=== PATIENT | female | born 1945 | race Caucasian/White ===

== ENCOUNTER 2016-12-16 18:06 | Inpatient (IN) | payer MEDICARE ==
[2016-12-16 20:58] VITALS: BMI 34.0
--- NOTE | 2016-12-16 22:51 | PDOC.EVN ---
Event Note - Event Note Event Note: [id number] H&P DICTATED 1. bILATERAL SUBMANDIBULAR SWELLING 2. PAIN 3. LEUKOCYTOSIS 4. DM type 2 plaN see orders
[2016-12-16] MEDS ORDERED: Ondansetron HCl/PF 4 MG/2 ML Vial IVP PRN (23:14)
[2016-12-16] MEDS ORDERED: Dextrose 50% Abboject 50 ML SYRINGE SLOW IVP PRN (23:18)
[2016-12-16] MEDS ORDERED: HumaLOG 300 UNITS/3 ML VIAL SC PRN ×2 (23:18)
[2016-12-16] MEDS ORDERED: Dextrose 5% in Water 1,000 ML IV PRN (23:18)
[2016-12-17] MEDS: Nystatin 500,000 UNITS/5 ML UDCUP PO SCH ×4 (00:24→18:38)
[2016-12-17] MEDS: Dexamethasone 4 mg/ml Vial SLOW IVP SCH ×4 (00:24→18:38)
[2016-12-17] MEDS: Sodium Chloride 0.9% 1,000 ML IV SCH ×2 (00:27→14:56)
[2016-12-17] MEDS ORDERED: Vancomycin HCl 1 GM in Premix Bag 1 BAG IVPB SCH (02:00)
[2016-12-17 04:42] LABS: #Lymphocytes 1.1 thou/uL (1.20-3.40); #Monocytes 0.5 thou/uL (0.11-0.59); #Neutrophils 13.9 thou/uL (1.40-6.50); %Basophils 0.1 % (0.0-1.0); %Eosinophils 0.1 % (0.0-10.0); %Lymphocytes 7.1 % (21.0-51.0); %Monocytes 3.2 % (0.0-10.0); Hematocrit 38.9 % (36.0-47.0); Mean Platelet Volume 7.4 fL (7.4-10.4); White Blood Cell (WBC) Count 15.5 thou/uL (4.8-10.8)
[2016-12-17 05:01] LABS: Anion Gap 12 mmol/L (10-20); BUN (Urea Nitrogen) 14 mg/dL (9.8-20.1); Calc. Creatinine Clearance 101 mL/min (70-130); Calcium 10.2 mg/dL (7.8-10.44); Carbon Dioxide 22 mmol/L (23-31); Chloride 103 mmol/L (98-107); Estimated GFR-MDRD 79
--- NOTE | 2016-12-17 06:48 | HP ---
DATE OF ADMISSION: 12/16/2016 CHIEF COMPLAINT: Bilateral submandibular gland swelling. HISTORY OF PRESENT ILLNESS: Patient is a 71-year-old female with past medical history of diabetes m ellitus type 2, hyperlipidemia, inflammatory bowel disease, degenerative disk disease, who came to [facility] ER complaining of bilateral submandibular swelling. The patient initially had swelling that star andrés on Tuesday. The patient went to outside ER on Tuesday, patient was started on p.o. antibiotic a nd discharged home. Patient's swelling got worse yesterday, so she went to the ER again and patient was admitted in [place]. The patient is transferred from [place] today, because of swelling ____ _ . The patient also complains some trouble swallowing. Complains of pain, pain is constant. Comp lains of some erythema and . Denies any chills. Denies any cough, denies sputum production. The patient complains of some oral thrush also. The patient's pain is persistent, mild in intensity , worsens with eating, relates with some pain medication. Denies any dyspnea at this time. Denies any nausea. Denies any vomiting. PAST MEDICAL HISTORY: As per HPI. PAST SURGICAL HISTORY: Carpal tunnel surgery, total abdominal hysterectomy, cholecystectomy. SOCIAL HISTORY: Denies smoking, denies alcohol, denies any drugs. FAMILY HISTORY: Positive for heart problems. REVIEW OF SYSTEMS: Constitutional: Denies any fever, denies any chills. Eyes: No vision problems . Ears: Denies hearing loss. Neck: Denies any neck pain. Cardiovascular System: Denies any kailyn st pain. Denies any palpations. Respiratory System: Denies any cough, denies sputum production. Cranial Nerve System: Denies syncope, denies lightheadedness. Psychiatric: Denies anxiety. Integ ument: Denies any rash. Genitourinary: Denies dysuria. Musculoskeletal: Denies any joint deformities. All other review o f systems are reviewed and are negative. PHYSICAL EXAMINATION: CONSTITUTIONAL/VITAL SIGNS: At the time of H\T\P performed, blood pressure is 141/84, pulse ox 97%, heart rate 82, respiration rate 18. GENERAL: The patient appears comfortable. HEENT: Pupils equal, round, and reactive to light. Anterior nares patent. Teeth intact. Tongue i s moist. NECK: Supple, no JVD. Submandibular region swelling present, induration present, hard, erythema pr esent, warm to touch, erythema extending from the bilateral jaw region all the way up to the upper p art of the neck. CARDIOVASCULAR SYSTEM: S1, S2 present. Regular rate and rhythm, no murmurs, no rubs, no gallops. RESPIRATORY: No wheezing, no rhonchi. Breath sounds bilaterally. CRANIAL NERVES SYSTEM: Awake, follows commands. Speech clear. Strength intact. GASTROINTESTINAL: Abdomen is soft, nontender, no guarding, no organomegaly, no masses felt. MUSCULOSKELETAL: No edema. INTEGUMENTARY: Erythema present in the neck region. LABORATORY DATA: Labs done in the outside ER showed white count of 18.9, hemoglobin 12.9, platelet count is 199. Sodium 136, potassium 4.6, chloride 102, CO2 of 22, BUN 20, creatinine 0.87. ASSESSMENT AND PLAN: The patient is a 71-year-old old female: 1. Bilateral submandibular swelling. Plan to consult ENT to evaluate the patient. Plan to keep pa tient n.p.o. Plan to start the patient on IV antibiotics and IV steroids also and we will monitor t he patient closely. 2. Pain, p.r.n. pain medications. 3. Diabetes mellitus type 2. Monitor blood sugars. We will do insulin sliding scale. 4. History of hyperlipidemia, stable. We will resume home medications when the patient started marielos erating diet. 5. Leukocytosis. Plan to check blood cultures. Plan to consult ID to evaluate the patient. Plan to keep the patient n.p.o. Plan to repeat CBC in a.m. Case was discussed in detail with the neda estrada
[2016-12-17] MEDS ORDERED: Fluconazole 100 MG TAB PO SCH (09:00)
[2016-12-17] MEDS: Fenofibrate Nanocrystallized 145 MG TAB PO SCH (10:03)
[2016-12-17] MEDS: Famotidine/PF 20 mg/2ml Vial SLOW IVP SCH ×2 (10:03→20:59)
[2016-12-17] MEDS: Dicyclomine 20 MG TAB PO SCH ×3 (10:03→20:59)
[2016-12-17] MEDS: Heparin 5,000 UNITS/ML VIAL SC SCH ×3 (10:17→20:59)
--- NOTE | 2016-12-17 11:47 | CON ---
DATE OF CONSULTATION: 12/17/2016 HISTORY: This is a 71-year-old female from [place], [place], who on Tuesday, 4 days ago developed saba e swelling of the neck. She went to the ER. They though she may have mumps, tests were done. she went back again because of persistent symptoms, at this time more swelling, more difficulty breathing. Further testing and cultures were done. She was admitted over there and eventually started having some difficulty breathing and swallowing s ymptoms. She was given some Rocky and some additional medication. She developed some rash she tells me over the face, neck, and chest. She was then transferred over here. Today, she denies any chest pain, difficulty breathing, fever or chills. Swallowing is better. Dys pnea is better. PAST MEDICAL HISTORY: Unknown GI problems. She was supposed to have endoscopy done. Colitis, hype rtension. PAST SURGICAL HISTORY: Mainly orthopedic, shoulder surgery, 2 corneal transplants, hysterectomy, ap pendix. SOCIAL HISTORY: Nonsmoker, no tobacco abuse, no alcohol abuse. MEDICATIONS FROM HOME: She takes Diflucan for years for chronic yeast infection, omeprazole 40, Lip itor 40, fluconazole 20. FAMILY HISTORY: Unremarkable. REVIEW OF SYSTEMS: Negative. PHYSICAL EXAMINATION: VITAL SIGNS: Temperature 98, respiration 20, blood pressure 120/85. CHEST: Chest reveals decreased breath sounds without any wheezing. CARDIAC: Normal S1, S2, no gallops. White count 15,000, H\T\H 12 and 38, platelet count 247. Sodium 133. To note there is some redness and swelling of the bilateral upper neck consistent with . IMPRESSION: 1. and parotiditis. 2. History of chronic thrush. PLAN: Await ENT input. Pulmonary Critical Care will watch while in the [facility]. Ordering a chest x-ray for baseline. I will follow.
--- NOTE | 2016-12-17 12:31 | PDOC.PN ---
- Subjective Encounter Start Date: 12/17/16 Encounter Start Time: 07:50 Subjective: says her swelling is better, no trouble swallowing now - Objective MAR Reviewed: Yes Vital Signs & Weight: Vital Signs (12 hours) Temp Pulse Resp BP BP Pulse Ox 12/17/16 11:42 98.7 F 79 20 123/47 L 95 12/17/16 08:00 98.1 F 82 20 97 12/17/16 07:07 98.1 F 82 20 121/85 97 12/17/16 04:00 98.1 F 76 20 118/78 96 Weight Weight 198 lb 9.6 oz I&O: 12/16/16 12/17/16 12/18/16 06:59 06:59 06:59 Intake Total 850 Output Total 900 Balance -50 Result Diagrams: 12/17/16 04:27 12/17/16 04:27 Additional Labs: Accuchecks 12/17/16 12/17/16 11:47 05:52 POC Glucose 125 H 115 H Phys Exam - Physical Examination HEENT: PERRLA Neck: no JVD has b/l parotids and submandibular gland swelling, mild tenderness to touch Respiratory: no wheezing, no rales Cardiovascular: RRR, no significant murmur Gastrointestinal: soft, non-tender, positive bowel sounds Musculoskeletal: no edema, pulses present Neurological: non-focal, moves all 4 limbs Psychiatric: A&O x 3 Dx/Plan (1) Sialoadenitis Code(s): K11.20 - SIALOADENITIS, UNSPECIFIED Status: Acute (2) DM type 2 (diabetes mellitus, type 2) Status: Chronic Qualifiers: Diabetes mellitus complication status: with unspecified complications (3) HTN (hypertension) Code(s): I10 - ESSENTIAL (PRIMARY) HYPERTENSION Status: Chronic Qualifiers: Hypertension type: essential hypertension Qualified Code(s): I10 - Essential (primary) hypertension (4) Dyslipidemia Code(s): E78.5 - HYPERLIPIDEMIA, UNSPECIFIED Status: Chronic (5) H/O inflammatory bowel disease Code(s): Z87.19 - PERSONAL HISTORY OF OTHER DISEASES OF THE DIGESTIVE SYSTEM Status: Chronic - Plan dont see any mump serologies that were apparently sent a week back -: will resend them now -: is on decadron, vanc and levaq -: on ?fluconazole -: await ENT opinion * . Review of Systems - Medications/Allergies Allergies/Adverse Reactions: Allergies Allergy/AdvReac Type Severity Reaction Status Date / Time Penicillins Allergy Intermediate Nausea Verified 12/15/16 09:30 amlodipine [From [facility]] Allergy Verified 12/16/16 23:16 pineapple Allergy Verified 12/15/16 19:29 Sulfa (Sulfonamide Allergy Verified 12/16/16 23:16 Antibiotics) Morpholine Analogues AdvReac nasuea Verified 12/15/16 09:30 Medications: Current Medications Atorvastatin Calcium (Lipitor) 40 mg PO HS [facility] Dexamethasone (Decadron) 2 mg SLOW IVP Q6HR [facility] Last Admin: 12/17/16 06:07 Dose: 2 mg Dextrose/Water (Dextrose 50%) 25 gm SLOW IVP PRN PRN PRN Reason: Hypoglycemia Dicyclomine HCl (Bentyl) 20 mg PO TID [facility] Last Admin: 12/17/16 10:03 Dose: Not Given Famotidine (Pepcid) 20 mg SLOW IVP Q12HR [facility] Last Admin: 12/17/16 10:03 Dose: Not Given Fenofibrate (Tricor) 145 mg PO DAILY [facility] Last Admin: 12/17/16 10:03 Dose: Not Given Fluconazole (Diflucan) 200 mg PO DAILY [facility] Last Admin: 12/17/16 10:03 Dose: Not Given Glucagon (Glucagon) 1 mg IM PRN PRN PRN Reason: Hypoglycemia Heparin Sodium (Porcine) (Heparin) 5,000 units SC TID [facility] Last Admin: 12/17/16 10:17 Dose: 5,000 units Hydrochlorothiazide (Hydrochlorothiazide) 12.5 mg PO QPM [facility] Dextrose/Water (D5w) 1,000 mls @ 0 mls/hr IV .Q0M PRN; As Directed PRN Reason: Hypoglycemia Levofloxacin 750 mg/ Device 150 mls @ 100 mls/hr IVPB Q24HR [facility] Last Admin: 12/17/16 00:26 Dose: 150 mls Sodium Chloride (Normal Saline 0.9%) 1,000 mls @ 75 mls/hr IV .[id number] [facility] Last Admin: 12/17/16 00:27 Dose: 1,000 mls Vancomycin HCl 1 gm/ Device 200 mls @ 200 mls/hr IVPB 0200,1400 [facility] Last Admin: 12/17/16 02:30 Dose: 200 mls Insulin Human Lispro (Humalog) 0 units SC .MODERATE SLIDING SC PRN PRN Reason: Moderate Correctional Scale Insulin Human Lispro (Humalog) 0 units SC .BEDTIME SLIDING SC PRN PRN Reason: Bedtime Correctional Scale Metoprolol Succinate (Toprol Xl) 25 mg PO QPM [facility] Nystatin (Mycostatin) 500,000 units PO Q6HR [facility] Last Admin: 12/17/16 06:07 Dose: 500,000 units Ondansetron HCl (Zofran) 4 mg IVP Q6H PRN PRN Reason: Nausea/Vomiting Pantoprazole Sodium (Protonix) 40 mg PO DAILY [facility] Last Admin: 12/17/16 10:02 Dose: Not Given Sodium Chloride (Flush - Normal Saline) 10 ml IVF Q12HR [facility] Last Admin: 12/17/16 10:18 Dose: 10 ml Sodium Chloride (Flush - Normal Saline) 10 ml IVF PRN PRN PRN Reason: Saline Flush
--- NOTE | 2016-12-17 15:08 | RAD ---
PORTABLE AP CHEST XRAY: DATE: 12/17/16. HISTORY: Dyspnea. COMPARISON: None available. FINDINGS: Cardiac silhouette is magnified by projection but does appear mildly enlarged. There is linear atel ectasis versus scarring at the left lung base. Slight patchy density is seen at the medial right beck ng base which may be related to vascular structures and superimposition of anterior 1st rib ending, but developing focal area of pneumonitis could not be entirely excluded. Left glenohumeral prosthes is is present as well as postsurgical changes related to anterior cervical fusion lower cervical spi ne. IMPRESSION: 1. Linear and patchy parenchymal density at the medial right lung base probably related to superimp osition of structures including vasculature, but developing area of pneumonitis in this region canno t be excluded. 2. Atelectasis versus scarring in the left lung base. 3. Mild cardiomegaly. POS: [facility]
[2016-12-17] MEDS ORDERED: HYDROCHLOROTHIAZIDE PO SCH (21:00)
[2016-12-17] MEDS ORDERED: METOPROLOL SUCCINATE PO SCH (21:00)
[2016-12-17] MEDS ORDERED: [UNRECOGNIZED DRUG - OTHER] PO SCH (21:00)
[2016-12-17] MEDS ORDERED: Hydrochlorothiazide 25 MG TAB PO SCH (21:00)
[2016-12-17] MEDS ORDERED: Atorvastatin Calcium 40 MG TAB PO SCH (21:00)
--- NOTE | 2016-12-17 23:06 | CON ---
DATE OF CONSULTATION: 12/17/2016 REASON FOR CONSULTATION: Sialadenitis. HISTORY OF PRESENT ILLNESS: A 71-year-old who was [place], also with a history of ulcerative colitis, managed in [place] with no followup yet [place] who was in her usual state until 2 days prior to admission when she developed progressively worsen ing swelling and pain in the parotid and submandibular areas, some erythema noted. She was seen in the emergency room because of neutrophilia she was admitted and no documented fever. No headaches. No visual symptoms, somewhat dry mouth. She also has a history of what she describes as a giuliano infection of the mouth, which is chronic for which she is treated with periodic antifungal medicatio n with then recurrence. The documentation for this is not available at this time. After admission, patient was given broad-spectrum coverage. Temperature has been normal since admission. She is aw sarah beth and alert. REVIEW OF SYSTEM: A 10-point review of systems is as above. She denies any respiratory symptoms or abdominal pain. No genitourinary symptoms. No diarrhea. She has chronic arthralgias, which are u nchanged. No neurological symptoms. PAST MEDICAL HISTORY: Hypertension, diabetes mellitus type 2, hyperlipidemia, history of recurring oral thrush or candidiasis, history of ulcerative colitis, managed in [place], chronic arthralgias, GERD, and corneal transplant. PAST SURGICAL HISTORY: Includes also a left shoulder replacement, carpal tunnel surgery, appendecto my, cholecystectomy and hemorrhoidectomy. SOCIAL HISTORY: Never smoker. ALLERGIES: PENICILLIN, possibly SULFA DRUGS. FAMILY HISTORY: Noncontributory. MEDICATIONS: Atorvastatin, Benadryl, metformin, balsalazide, triamterene, hydrochlorothiazide, omep razole, dicyclomine, fluconazole, fenofibrate, acidophilus, laureano, Coenzyme Q, and other vitamins. PHYSICAL EXAMINATION: VITAL SIGNS: T-max 98.7, blood pressure 120/40, pulse 80, respirations 20, O2 sat 95%. GENERAL: In no distress. SKIN: Area of erythema in the anterior upper chest region, right below the neck, sort of an area of hyperemia. The facial area with the swelling, but no hyperemia noted. No lymphadenopathy. HEENT: Ocular movements are conjugate. Sclerae white. Pupils are equal. Oral cavity appears dry with depapillation of the surface of tongue with some yellowish discoloration. No ulcers. No eryth tin. No drainage. There is diffuse brown kind of woody induration of the parotid and some submandi bular glands, which are very symmetric mild to moderately tender. NECK: Supple. No jugular venous distention or carotid bruits. LUNGS: With symmetric breath sounds. HEART: S1, S2, regular rate. No S3, S4. ABDOMEN: Soft, not distended or tender. No ascites. No bladder distention. EXTREMITIES: No joint inflammatory activity. Pulses are 1+ in dorsalis pedis. NEUROLOGIC: Plantar responses are flexor. Strength in all 4 extremities is preserved. Cognitive f unction appears to be intact. LABORATORY DATA: White cell count 15,000, hemoglobin 12, platelets 247,000 with a predominance of m ature neutrophils 89%. Chemistry with sodium 133, carbon dioxide 22, creatinine 0.73, glucose 139. The cultures with 2 sets of venous blood cultures, no growth at 48 hours. ASSESSMENT: 1. Type 2 diabetes. 2. Hypertension. 3. Ulcerative colitis on balsalazide. 4. Recent onset of symmetric sialadenitis. DISCUSSION: Differential diagnosis includes autoimmune forms of sialadenitis including IgG4 related disease, Sjogren's syndrome versus infectious sialadenitis including mumps virus infection. Bacter ial sialadenitis is less likely in view of the symmetry, absence of fever and toxicity in the clinic al manifestations. Submit mumps workup and GIA, IgG4 titers and discontinue antimicrobial therapy.
[2016-12-18] MEDS: Nystatin 500,000 UNITS/5 ML UDCUP PO SCH ×3 (01:43→11:53)
[2016-12-18] MEDS: Dexamethasone 4 mg/ml Vial SLOW IVP SCH (01:43)
[2016-12-18] MEDS: Sodium Chloride 0.9% 1,000 ML IV SCH (01:44)
[2016-12-18 04:34] LABS: #Lymphocytes 1.8 thou/uL (1.20-3.40); #Monocytes 0.4 thou/uL (0.11-0.59); #Neutrophils 6.3 thou/uL (1.40-6.50); %Basophils 0.3 % (0.0-1.0); %Eosinophils 0.2 % (0.0-10.0); %Lymphocytes 20.6 % (21.0-51.0); Hematocrit 38.1 % (36.0-47.0); Mean Platelet Volume 7.6 fL (7.4-10.4); Red Blood Cell (RBC) Count 4.06 mill/uL (4.20-5.40); White Blood Cell (WBC) Count 8.5 thou/uL (4.8-10.8)
[2016-12-18 05:03] LABS: ALT (SGPT) 16 U/L (8-55); AST (SGOT) 22 U/L (5-34); Alkaline Phosphatase 51 U/L (40-150); Anion Gap 12 mmol/L (10-20); BUN (Urea Nitrogen) 14 mg/dL (9.8-20.1); Bilirubin, Total 0.4 mg/dL (0.2-1.2); Calc. Creatinine Clearance 108 mL/min (70-130); Calcium 10.3 mg/dL (7.8-10.44); Carbon Dioxide 23 mmol/L (23-31); Chloride 103 mmol/L (98-107); Estimated GFR-MDRD 85; Globulin 3.6 g/dL (2.4-3.5); Protein, Total 6.9 g/dL (6.0-8.3)
[2016-12-18] MEDS: Dexamethasone 4 mg/ml Vial IM SCH ×2 (05:39→13:17)
[2016-12-18 07:46] VITALS: BP 146/96; TEMP 98
[2016-12-18] MEDS ORDERED: Lisinopril 20 MG TAB PO SCH (09:00)
[2016-12-18] MEDS ORDERED: Triamterene/Hydrochlorothiazide 37.5 mg/25 mg Tablet PO SCH ×2 (10:30→21:00)
--- NOTE | 2016-12-18 11:32 | PDOC.PN ---
- Subjective Encounter Start Date: 12/18/16 Encounter Start Time: 09:30 -: old records requested/rev Patient seen and examined. No new complaints. No overnight events - Objective MAR Reviewed: Yes Vital Signs & Weight: Vital Signs (12 hours) Temp Pulse Resp BP Pulse Ox 12/18/16 07:41 98.0 F 66 18 146/96 H 94 L Weight Admit Weight 198 lb 9.6 oz Weight 198 lb 9.6 oz I&O: 12/17/16 12/18/16 12/19/16 06:59 06:59 06:59 Intake Total 850 Output Total 900 Balance -50 Result Diagrams: 12/18/16 04:15 12/18/16 04:15 Additional Labs: Accuchecks 12/17/16 12/17/16 12/17/16 20:15 16:35 11:47 POC Glucose 170 H 136 H 125 H Phys Exam - Physical Examination Constitutional: NAD HEENT: PERRLA, moist MMs, sclera anicteric Neck: no JVD, supple Respiratory: no wheezing, no rales, no rhonchi Cardiovascular: RRR, no significant murmur, no rub Gastrointestinal: soft, non-tender, no distention, positive bowel sounds Musculoskeletal: no edema, pulses present Neurological: non-focal, normal sensation, moves all 4 limbs Psychiatric: normal affect, A&O x 3 Skin: no rash, normal turgor Dx/Plan (1) DM type 2 (diabetes mellitus, type 2) Status: Chronic Qualifiers: Diabetes mellitus complication status: with unspecified complications (2) Dyslipidemia Code(s): E78.5 - HYPERLIPIDEMIA, UNSPECIFIED Status: Chronic (3) H/O inflammatory bowel disease Code(s): Z87.19 - PERSONAL HISTORY OF OTHER DISEASES OF THE DIGESTIVE SYSTEM Status: Chronic (4) HTN (hypertension) Code(s): I10 - ESSENTIAL (PRIMARY) HYPERTENSION Status: Chronic Qualifiers: Hypertension type: essential hypertension Qualified Code(s): I10 - Essential (primary) hypertension (5) Candidiasis of mouth Code(s): B37.0 - CANDIDAL STOMATITIS Status: Acute (6) Sialoadenitis Code(s): K11.20 - SIALOADENITIS, UNSPECIFIED Status: Acute - Plan cont current plan of care * medication reviewed as below * symptomatic treatment * see discharge gagan. Review of Systems - Review of Systems ENT: negative: Ear Pain, Ear Discharge, Nose Pain, Nose Discharge, Nose Congestion, Mouth Pain, Mouth Swelling, Throat Pain, Throat Swelling, Other Respiratory: negative: Cough, Dry, Shortness of Breath, Hemoptysis, SOB with Excertion, Pleuritic Pain, Sputum, Wheezing Cardiovascular: negative: Chest Pain, Palpitations, Orthopnea, Paroxysmal Noc. Dyspnea, Edema, Light Headedness, Other Gastrointestinal: negative: Nausea, Vomiting, Abdominal Pain, Diarrhea, Constipation, Melena, Hematochezia, Other Genitourinary: negative: Dysuria, Frequency, Incontinence, Hematuria, Retention , Other Musculoskeletal: negative: Neck Pain, Shoulder Pain, Arm Pain, Back Pain, Hand Pain, Leg Pain, Foot Pain, Other Skin: negative: Rash, Lesions, Kye, Bruising, Other - Medications/Allergies Allergies/Adverse Reactions: Allergies Allergy/AdvReac Type Severity Reaction Status Date / Time Penicillins Allergy Intermediate Nausea Verified 12/15/16 09:30 amlodipine [From [facility]] Allergy Verified 12/16/16 23:16 pineapple Allergy Verified 12/15/16 19:29 Sulfa (Sulfonamide Allergy Verified 12/16/16 23:16 Antibiotics) Morpholine Analogues AdvReac nasuea Verified 12/15/16 09:30 Medications: Current Medications Atorvastatin Calcium (Lipitor) 40 mg PO HS [facility] Last Admin: 12/17/16 20:59 Dose: 40 mg Cholecalciferol (Vitamin D3) 2,000 units PO DAILY [facility] Dexamethasone (Decadron) 2 mg IM Q6HR [facility] Last Admin: 12/18/16 05:39 Dose: 2 mg Dextrose/Water (Dextrose 50%) 25 gm SLOW IVP PRN PRN PRN Reason: Hypoglycemia Dicyclomine HCl (Bentyl) 20 mg PO TID [facility] Last Admin: 12/17/16 20:59 Dose: 20 mg Famotidine (Pepcid) 20 mg SLOW IVP Q12HR [facility] Last Admin: 12/17/16 20:59 Dose: 20 mg Fenofibrate (Tricor) 145 mg PO DAILY [facility] Last Admin: 12/17/16 10:03 Dose: Not Given Glucagon (Glucagon) 1 mg IM PRN PRN PRN Reason: Hypoglycemia Heparin Sodium (Porcine) (Heparin) 5,000 units SC TID [facility] Last Admin: 12/17/16 20:59 Dose: 5,000 units Hydrochlorothiazide (Hydrochlorothiazide) 12.5 mg PO QPM [facility] Last Admin: 12/17/16 20:59 Dose: 12.5 mg Dextrose/Water (D5w) 1,000 mls @ 0 mls/hr IV .Q0M PRN; As Directed PRN Reason: Hypoglycemia Insulin Human Lispro (Humalog) 0 units SC .MODERATE SLIDING SC PRN PRN Reason: Moderate Correctional Scale Insulin Human Lispro (Humalog) 0 units SC .BEDTIME SLIDING SC PRN PRN Reason: Bedtime Correctional Scale Lisinopril (Zestril) 20 mg PO QAM [facility] Metformin HCl (Glucophage) 500 mg PO BID[facility] Metoprolol Succinate (Toprol Xl) 25 mg PO QPM [facility] Last Admin: 12/17/16 20:59 Dose: 25 mg Nystatin (Mycostatin) 500,000 units PO Q6HR [facility] Last Admin: 12/18/16 05:39 Dose: 500,000 units Ondansetron HCl (Zofran) 4 mg IVP Q6H PRN PRN Reason: Nausea/Vomiting Pantoprazole Sodium (Protonix) 40 mg PO DAILY [facility] Last Admin: 12/17/16 10:02 Dose: Not Given Sodium Chloride (Flush - Normal Saline) 10 ml IVF Q12HR [facility] Last Admin: 12/17/16 20:09 Dose: Not Given Sodium Chloride (Flush - Normal Saline) 10 ml IVF PRN PRN PRN Reason: Saline Flush Triamterene/HCTZ (Maxzide-25) 0.5 tab PO BID [facility] Triamterene/HCTZ (Maxzide-25) 0.5 tab PO 1030 [facility] Stop: 12/18/16 12:30
[2016-12-18] MEDS: Fenofibrate Nanocrystallized 145 MG TAB PO SCH (11:47)
[2016-12-18] MEDS: Famotidine/PF 20 mg/2ml Vial SLOW IVP SCH (11:47)
[2016-12-18] MEDS: Heparin 5,000 UNITS/ML VIAL SC SCH (11:48)
[2016-12-18] MEDS: Dicyclomine 20 MG TAB PO SCH (11:49)
[2016-12-18 13:18] LABS: Vancomycin, Trough 3.2 ug/mL
--- NOTE | 2016-12-18 14:16 | DIS ---
DATE OF ADMISSION: 12/16/2016 DATE OF DISCHARGE: 12/18/2016 PRIMARY CARE PHYSICIAN: Dr. Tyrone Silva. DISCHARGE DISPOSITION: Home. PRIMARY DISCHARGE DIAGNOSIS: Sialadenitis. SECONDARY DISCHARGE DIAGNOSES: Diabetes type 2, hypertension, dyslipidemia, history of inflammatory bowel disease, oral candidiasis, degenerative joint disease. PRIMARY PROCEDURE/OPERATION: None. RADIOLOGICAL INVESTIGATION: Patient had chest x-ray, which showed no acute cardiopulmonary process. SIGNIFICANT LABORATORY DATA: WBC 8.5, hemoglobin 12.8, platelets 233. Sodium 134, potassium 3.9, BUN 14, creatinine 0.68, calcium 10.3. Liver enzymes normal. RESULTS PENDING ON DISCHARGE: IgG subclass, lupus panel, measles, mumps, and rubella panel. DISCHARGE PLAN: Post hospital, the patient is advised to follow up with primary care physician, Dr. Baez and Dr. Swapnil Gonsalves. HOSPITAL COURSE: A 71-year-old female with the above-mentioned medical problem , who came to the emergency room with complaint of bilateral submandibular swelling. This patient's swelling started on Tuesday, she went to the emergency room on Tuesday and she was given oral antibiotic therapy and discharged home. Her condition gotten worse and that is why she visited emergency room again and subsequently she was admitted. During this admission, we consulted Dr. Baez and he was not thinking that this patient has any infectious process and he recommended to discontinue antibiotic therapy. He sent GIA, IgG subclass and MMR (measles, mumps, and rubella) type of testing. At this point, the patient has clinically significant improvement with Decadron and her swelling in the submandibular gland completely resolved. Patient is tolerating p.o. well and today when I saw this patient, at that time she expressed her wish to go home. At this point, the patient is no longer on any antibiotic therapy that was discontinued. The patient had significant clinical improvement with Decadron. The patient is advised to follow with Dr. Baez and Dr. Swapnil Gonsalves who also evaluated this patient while in hospital. Dr. Swapnil Gonsalves was not thinking that this patient has any mumps or any viral infection. He was also not thinking any infectious process. At this point, patient's admitting problem resolved with steroid and we advised her to follow up with ENT and ID. The patient is seen and examined at bedside today. Please see my progress note from today for further details. DISCHARGE MEDICATIONS: Augmentin 875 mg twice daily, the patient is advised to finish this complete course of therapy which was prescribed in the emergency room, Lipitor 40 mg p.o. daily, balsalazide 750 mg p.o. b.i.d., vitamin D3 2000 units p.o. daily, Bentyl 20 mg t.i.d., vitamin B12 5000 mcg p.o. daily, fenofibrate 160 mg p.o. daily, Diflucan 200 mg p.o. daily, lisinopril 20 mg p.o. daily, magnesium 250 mg p.o. daily, metoprolol ER with hydrochlorothiazide one tablet p.o. daily, Mycostatin oral suspension q.6 hourly, omeprazole 40 mg p.o. daily, potassium gluconate 1 tablet daily, triamterene with hydrochlorothiazide half tablet twice daily, vitamin A 8000 units p.o. daily, zinc 50 mg p.o. daily, metformin 500 mg p.o. b.i.d. The patient is also taking following supplements: Chromium 500 mcg p.o. daily, cinnamon 1000 mg p.o. b.i.d., cranberry 1 tablet daily, probiotic daily, Lysine 500 mg p.o. daily, papaya 2 capsules p.o. b.i.d., turmeric 2 capsules p.o. daily. CONTRAINDICATIONS: None. CODE STATUS: FULL CODE. INPATIENT CONSULTANTS: Dr. Baez and Dr. Ashraf and Dr. Swapnil Gonsalves was following while in hospital. TEST RESULTS PENDING ON DISCHARGE: None. ALLERGIES: PENICILLIN, AMLODIPINE, PINEAPPLE, SULFA, MORPHINE. DISCHARGE PLAN: Post hospital, the patient will follow up with above-mentioned consultants. Total time spent on discharge day 31 minutes. MTDD
--- NOTE | 2016-12-18 14:56 | PRG ---
DATE OF SERVICE: 12/18/2016 SUBJECTIVE: She is much better, no shortness of breath. PHYSICAL EXAMINATION: VITAL SIGNS: Blood pressure 146/96, sats 98%, temperature is 98, respiratory rate 20. CHEST: Decreased breath sounds, no wheezing. CARDIAC: Normal S1 and S2. No gallops. ABDOMEN: Soft, no masses. LABORATORY DATA: White count normal. Electrolytes are normal. IMPRESSION: Discharge privileges all met and is pretty much improved. DISPOSITION: Home. We will follow.
[2016-12-18] MEDS ORDERED: metFORMIN 500 MG TAB PO SCH (17:00)
[2016-12-19 18:08] LABS: Measles (Rubeola) IgG AB Greater than 300.0 AU/mL (Immune >29.9)
[2016-12-21 13:17] LABS: Anti-Striation AB Negative (Neg:<1:40); Complement C4 42 mg/dL (14-44); Mitochondrial (M2) ABS 4.1 Units (0.0-20.0); SCL-70 IgG AutoAb <0.2 AI (0.0-0.9); Smith IgG AutoAb <0.2 AI (0.0-0.9); Smooth Muscle AB 9 Units (0-19); Thyroid Peroxidase Abs 9 IU/mL (0-34); U1 RNP/SNRNP IgG AutoAb <0.2 AI (0.0-0.9)
== END 2016-12-18 14:05 | disposition home or self-care (01) | DRG 155 ==
LOC: IMCU/EMU 20:46 → T4-A 12-17 17:22
PROVIDERS: ADMIT Internal Medicine; ATTEND Internal Medicine
DX: K11.21 Acute sialoadenitis (principal); B37.0 Candidal stomatitis; K51.90 Ulcerative colitis, unspecified, without complications; E11.9 Type 2 diabetes mellitus without complications; E78.5 Hyperlipidemia, unspecified; I10 Essential (primary) hypertension; M19.90 Unspecified osteoarthritis, unspecified site; Z88.5 Allergy status to narcotic agent; Z88.0 Allergy status to penicillin; Z88.2 Allergy status to sulfonamides; Z88.8 Allergy status to other drugs, medicaments and biological substances; Z91.018 Allergy to other foods; Z79.84 Long term (current) use of oral hypoglycemic drugs; K21.9 Gastro-esophageal reflux disease without esophagitis
CPT/HCPCS: 36415; 36416; 71010; 80048; 80053; 80202; 82787; 83520; 85025; 86160; 86225; 86235; 86376; 86431; 86735; 86762; 86765; A4216; J1100; J1644; S0028